=== PATIENT | male | born 1975 | race Caucasian/White ===

== ENCOUNTER 2017-03-30 13:23 | Emergency (ER) | payer OTHER ==
[~2017-03-30] VITALS: Ht 182.9 cm; Wt 63.4 kg
[2017-03-30 13:45] VITALS: BP 134/86
== END 2017-03-30 17:07 | disposition left against medical advice (07) ==
LOC: EME 13:23
DX: M79.1 Myalgia (principal); R11.0 Nausea; R19.7 Diarrhea, unspecified; Z53.21 Procedure and treatment not carried out due to patient leaving prior to being seen by health care provider